=== PATIENT | female | born 1970 | race Caucasian/White ===

== ENCOUNTER 2023-08-08 15:17 | Emergency (ER) | payer OTHER ==
[2023-08-08] MEDS ORDERED: KETOROLAC 30 MG/ML INJ ONE (15:51)
--- NOTE | 2023-08-08 15:53 | RAD REPORT ---
EXAM DESCRIPTION: RAD - Chest Single View - 08/08/2023 3:46 pm CLINICAL HISTORY: CHEST PAIN Chest pain. COMPARISON: No comparisons FINDINGS: Portable technique limits examination quality. The lungs are grossly clear. The heart is normal in size. No displaced fractures. IMPRESSION: No acute intrathoracic process suspected.
[2023-08-08 16:41] LABS: Absolute Basophils 0.1 K/uL (0-0.5); Absolute Eosinophils 0.2 K/uL (0-0.5); Absolute Lymphocytes (CBC) 3.1 K/uL (0.7-4.9); Absolute Monocytes 0.6 K/uL (0.1-1.3); Basophils % 0.8 % (0-1.3); Eosinophils % 1.4 % (0-4.4); Hematocrit 40.2 % (36.0-45.0); Hemoglobin 13.7 g/dL (12.0-15.0); Lymphocytes % 28.5 % (15.3-44.8); MCH 31.8 pg (27.0-35.0); MCV 93.5 fL (80-100); MPV 9.8 fL (7.6-11.3); Monocytes % 5.7 % (3.3-12.3); Neutrophils % 63.6 % (41.7-73.7); Nucleated Red Blood Cells % 0.2 % (0-0); Platelets 302 thou/uL (152-406); Red Cell Distribution Width 12.9 % (12.1-15.2)
[2023-08-08 16:59] LABS: Anion Gap 4.7 mEq/L (5.0-15.0); BUN Blood Urea Nitrogen 20 mg/dL (7-18); Bicarbonate 29 mEq/L (21-32); Glomerular Filtration Rate 83 ml/min (=/>90); Glucose Level 104 mg/dL (74-106); Potassium 3.7 mEq/L (3.5-5.1); Sodium Level 135 mEq/L (136-145)
[2023-08-08 17:02] LABS: Troponin High Sensitivity < 3.0 pg/mL (<58.9)
--- NOTE | 2023-08-08 17:20 | ER ---
Nurse's Notes [facility] Name: Carolee Yoon Age: 53 yrs Sex: Female : 1970 Arrival Date: 08/08/2023 Time: 15:17 Bed 4 Private MD: Diagnosis: Chest pain, unspecified Presentation: 08/07 15:20 Chief complaint: Patient states: chest tightness that has been worsening over the last as6 few days, pt also reports dizziness. Coronavirus screen: At this time, the client does not indicate any symptoms associated with coronavirus-19. Ebola Screen: No symptoms or risks identified at this time. Initial Sepsis Screen: Does the patient meet any 2 criteria? No. Patient's initial sepsis screen is negative. Does the patient have a suspected source of infection? No. Patient's initial sepsis screen is negative. Risk Assessment: Do you want to hurt yourself or someone else? Patient reports no desire to harm self or others. Onset of symptoms was August 06, 2023. 15:20 Method Of Arrival: Ambulatory as6 15:20 Acuity: ROGELIO 2 as6 Triage Assessment: 15:22 General: Appears in no apparent distress. Behavior is calm, cooperative. Pain: as6 Complains of pain in chest. Historical: - Allergies: 15:21 No Known Allergies; as6 - PMHx: 15:21 None; as6 - PSHx: 15:21 Total abdominal hysterectomy; back; as6 - Immunization history:: Adult Immunizations up to date. - Infectious Disease History:: Denies. - Social history:: Smoking status: Patient reports the use of cigarette tobacco products, denies chronic smoking, but will smoke occasionally. Screenin:25 [facility] ED Fall Risk Assessment (Adult) History of falling in the last 3 months, rs5 including since admission No falls in past 3 months (0 pts) Confusion or Disorientation No (0 pts) Intoxicated or Sedated No (0 pts) Impaired Gait No (0 pts) Mobility Assist Device Used No (0 pt) Altered Elimination No (0 pt) Score/Fall Risk Level 0 - 2 = Low Risk Oriented to surroundings, Maintained a safe environment. Abuse screen: Denies threats or abuse. Nutritional screening: No deficits noted. Tuberculosis screening: No symptoms or risk factors identified. Assessment: 15:25 General: Appears in no apparent distress. uncomfortable, Behavior is calm, cooperative. rs5 Pain: Complains of pain in chest Pain does not radiate. Pain currently is 5 out of 10 on a pain scale. Quality of pain is described as aching, Pain began 2-3 days ago. Neuro: Level of Consciousness is awake, alert, obeys commands, Oriented to person, place, time, situation. Cardiovascular: Patient's skin is warm and dry. Rhythm is regular. Respiratory: Airway is patent Respiratory effort is even, unlabored, Respiratory pattern is regular, symmetrical. GI: Abdomen is round non-distended, Abd is soft and non tender X 4 quads. : No signs and/or symptoms were reported regarding the genitourinary system. EENT: No signs and/or symptoms were reported regarding the EENT system. Derm: Skin is intact, Skin is pink, warm \\T\\ dry. Musculoskeletal: Range of motion: intact in all extremities. 15:40 Reassessment: To bedside for med adm, Ketorolac drawn from vial using 1 ml syringe. pt rs5 states "I don't want to take any medication, I don't like taking medication", opened Toradol vial and syringe disposed in sharps container. provider notified. 16:33 Reassessment: No changes from previously documented assessment. rs5 17:41 Reassessment: Patient and/or family updated on plan of care and expected duration. Pain rs5 level reassessed. Patient is alert, oriented x 3, equal unlabored respirations, skin warm/dry/pink. Vital Signs: 15:20 BP 176 / 100; Pulse 77; Resp 18 S; Temp 97.8; Pulse Ox 100% on R/A; Weight 79.38 kg as6 (R); Height 5 ft. 5 in. (R); Pain 5/10; 16:00 BP 133 / 79; Pulse 80; Resp 17; Pulse Ox 99% ; rs5 17:12 BP 140 / 83; Pulse 67; ec2 17:25 BP 135 / 77; Pulse 72; Resp 18; Pulse Ox 99% on R/A; rs5 15:20 Body Mass Index 29.12 (79.38 kg, 165.1 cm) as6 15:20 Pain Scale: Adult as6 ED Course: 15:18 Patient arrived in ED. mr 15:18 Joel Fuentes MD is Attending Physician. ec2 15:20 Arm band placed on left wrist. as6 15:21 Triage completed. as6 15:25 Patient has correct armband on for positive identification. Bed in low position. Call rs5 light in reach. Side rails up X2. Client placed on continuous cardiac and pulse oximetry monitoring. NIBP monitoring applied. property assessment monitor on. Pulse ox on. 15:47 Vanessa Fuentes, RN is Primary Nurse. db 15:48 XRAY Chest (1 view) In Process Unspecified. EDMS 16:30 Inserted saline lock: 20 gauge in right antecubital area, using aseptic technique. nj1 Blood collected. Ultrasound guided. Catheter tip well visualized within vasculature during placement. 17:42 No provider procedures requiring assistance completed. rs5 17:43 IV discontinued, intact, bleeding controlled, No redness/swelling at site. Pressure rs5 dressing applied. Administered Medications: 16:37 Not Given (Patient Refused): [id number] mg IVP once rs5 Medication: 17:42 VIS not applicable for this client. rs5 Outcome: 17:20 Discharge ordered by . ec2 17:43 Discharged to home ambulatory, rs5 17:43 Condition: stable 17:43 Discharge instructions given to patient, family, Instructed on discharge instructions, follow up and referral plans. Demonstrated understanding of instructions, follow-up care, 17:43 Patient left the ED. rs5 Signatures: Dispatcher [employer] EDMN MerazCarina, Reg Reg mr SchmidAleksey, RN RN as6 Vanessa Fuentes, RN CAILIN db Avi Herbert RN RN rs5 Cami Mendez RN RN nj1 Joel Fuentes MD MD ec2 Corrections: (The following items were deleted from the chart) 08/08 07:53 08/07 15:25 Pain: Complains of pain in chest Pain does not radiate. Pain currently is 2 rs5 out of 10 on a pain scale. Quality of pain is described as aching, Pain began 2-3 days ago. rs5 08/08 07:53 08/07 15:25 Reassessment: Pt states "I'm not really having pain, it's more of a rs5 tightness that I am feeling". rs5 08/08 07:54 08/07 15:40 Reassessment: To bedside for med adm, Ketorolac drawn from vial using 1 ml rs5 syringe. pt states "I don't want to take any medication, I don't like taking medication", Toradol vial and syringe disposed in sharps container. provider notified. rs5
--- NOTE | 2023-08-08 17:20 | EDPHYS ---
Physician Documentation [facility] Name: Carolee Yoon Age: 53 yrs Sex: Female : 1970 Arrival Date: 08/08/2023 Time: 15:17 Bed 4 Private MD: ED Physician Joel Fuentes HPI: 08/07 15:46 This 53 yrs old Female presents to ER via Ambulatory with complaints of Chest ec2 Pain, Chest Tightness. 15:46 Patient arrives today for evaluation of chest pain. Patient been having chest pain ec2 ongoing for several days. Patient reports no specific alleviating chest pain factors. Patient reports no difficulty breathing, no leg swelling. Patient denies any cardiac disease. Patient reports no nausea or vomiting, no shortness of breath, no abdominal pain, no urinary complaints.. Historical: - Allergies: 15:21 No Known Allergies; as6 - PMHx: 15:21 None; as6 - PSHx: 15:21 Total abdominal hysterectomy; back; as6 - Immunization history:: Adult Immunizations up to date. - Infectious Disease History:: Denies. - Social history:: Smoking status: Patient reports the use of cigarette tobacco products, denies chronic smoking, but will smoke occasionally. ROS: 15:46 Constitutional: as per hpi ec2 Exam: 15:46 Constitutional: GEN: NAD Head: atraumatic Eyes: EOMI Ears: External ears are ec2 normal. CV: regular rate LUNGS: no respiratory distress ABD: non-distended SKIN: no evidence of rashes MSK: no evidence of trauma NEURO: moves all extremities equally Vital Signs: 15:20 BP 176 / 100; Pulse 77; Resp 18 S; Temp 97.8; Pulse Ox 100% on R/A; Weight 79.38 kg as6 (R); Height 5 ft. 5 in. (R); Pain 5/10; 16:00 BP 133 / 79; Pulse 80; Resp 17; Pulse Ox 99% ; rs5 17:12 BP 140 / 83; Pulse 67; ec2 17:25 BP 135 / 77; Pulse 72; Resp 18; Pulse Ox 99% on R/A; rs5 15:20 Body Mass Index 29.12 (79.38 kg, 165.1 cm) as6 15:20 Pain Scale: Adult as6 MDM: 15:23 Patient medically screened. ec2 15:46 Data reviewed: vital signs. ED course: Patient arrives today for evaluation of chest ec2 tightness. Examination remarkable for well-appearing nontoxic dividual is otherwise in no acute distress with a reassuring examination. Will obtain a cardiac evaluation. Evaluating for ACS, electrolyte disturbances, arrhythmia, pneumonia.. 15:47 ED course: EKG independently reviewed and interpreted by me, shows normal sinus rhythm, ec2 rate of 60, no acute ST segment elevations, intervals non-concerning. . 15:54 ED course: Chest x-ray independently reviewed and interpreted by me, shows no acute ec2 thoracic process.. 17:10 ED course: Metabolic profile reassuring, troponin undetectable. . ec2 17:19 ED course: On reassessment patient is well-appearing in no acute distress. Will ec2 discharge home. Instructed follow-up primary care doctor, possible cardiology evaluation as well. Laceration for ACS, low suspicion for PE or dissection.. 05 15:23 Order name: Basic Metabolic Panel; Complete Time: 17:09 ec2 08/07 15:23 Order name: CBC with Diff; Complete Time: 16:49 ec2 08/07 15:23 Order name: Troponin HS; Complete Time: 17:09 ec2 08/07 15:23 Order name: XRAY Chest (1 view); Complete Time: 15:54 ec2 08/07 15:23 Order name: Cardiac monitoring; Complete Time: 16:12 ec2 08/07 15:23 Order name: EKG - Nurse/Tech; Complete Time: 16:12 ec2 08/07 15:23 Order name: IV Saline Lock; Complete Time: 16:37 ec2 08/07 15:23 Order name: Labs collected and sent; Complete Time: 16:37 ec2 08/07 15:23 Order name: O2 Per Protocol; Complete Time: 16:12 ec2 08/07 15:23 Order name: O2 Sat Monitoring; Complete Time: 16:12 ec2 Administered Medications: 16:37 Not Given (Patient Refused): [id number] mg IVP once rs5 Disposition Summary: 08/08/23 17:20 Discharge Ordered Notes: Location: Home ec2 Condition: Stable ec2 Diagnosis - Chest pain, unspecified ec2 Followup: ec2 - With: Private Physician - When: - Reason: Re-evaluation by your physician Discharge Instructions: - Discharge Summary Sheet ec2 - Nonspecific Chest Pain, Adult ec2 Forms: - Medication Reconciliation Form ec2 - Antibiotic Education ec2 - Prescription Opioid Use ec2 - Patient Portal Instructions ec2 - Leadership Thank You Letter ec2 Signatures: Dispatcher [employer] Aleksey Valle RN RN as6 Joel Fuentes MD MD ec2 Avi Herbert RN rs5 Corrections: (The following items were deleted from the chart) 15:23 15:23 Chest Single View+RAD.[email or web address].[email or web address] ordered. HEMA GARRIDO
[2023-08-08 18:05] VITALS: BP 135/77; TEMP 97.8; O2SAT 99
--- NOTE | 2023-08-09 14:01 | EKG ---
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
== END 2023-08-08 17:43 | disposition home or self-care (01) ==
LOC: ER 15:17
DX: R07.89 Other chest pain (principal); F17.210 Nicotine dependence, cigarettes, uncomplicated
CPT/HCPCS: 36415; 71045; 80048; 84484; 85025; 93005; 99284

== ENCOUNTER 2024-05-12 15:36 | Emergency (ER) | payer OTHER ==
[2024-05-12] MEDS ORDERED: TDAP (DIPHTH,PERTUSS(ACELL),TET VAC) 0.5 ML VIAL IMVAC ONE (15:48)
[2024-05-12] MEDS ORDERED: LIDOCAINE 1% MPF 30 ML VIAL ONE (15:48)
--- NOTE | 2024-05-12 16:35 | RAD REPORT ---
EXAM: Hand Left 3 View HISTORY: L thumb inj COMPARISON: None FINDINGS: Bones: Comminuted fracture of the thumb. No intra-articular extension. Fracture involves the mid and distal portions. . Overall, the displacement is mild. Alignment: There is up to 2 mm of distraction of the tuft. Degenerative changes:None significant. Other: n/a IMPRESSION: Comminuted fracture of the thumb.
--- NOTE | 2024-05-12 16:50 | EDPHYS ---
Physician Documentation [facility] Name: Carolee Yoon Age: 54 yrs Sex: Female : 1970 Arrival Date: 05/12/2024 Time: 15:36 Bed 17 Private MD: ED Physician Joel Fuentes HPI: 05/12 15:44 This 54 yrs old Female presents to ER via Unassigned with complaints of Crush ec2 Injury - left thumb. 15:44 Patient arrives today for evaluation of a left thumb injury. Reports that she had ec2 injured crushed her left thumb. Denies any other concerns. Pain and injury isolated to the distal portion of the thumb.. 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 - Infectious Disease History:: Denies. - Social history:: Smoking status: Patient reports the use of cigarette tobacco products, smokes .25 packs per day. ROS: 15:44 Constitutional: as per hpi ec2 Exam: 15:44 Constitutional: GEN: NAD Head: atraumatic Eyes: EOMI Ears: External ears are ec2 normal. CV: regular rate LUNGS: no respiratory distress ABD: non-distended SKIN: Distal left thumb with subungual hematoma, bleeding present, nail intact Vital Signs: 15:45 BP 192 / 96; Pulse 89; Resp 17; Temp 97.6; Pulse Ox 98% ; Weight 79.38 kg; Height 5 ft. ll1 5 in. ; Pain 4/10; 17:00 BP 154 / 84; Pulse 80; Resp 20; Temp 98; Pulse Ox 100% on R/A; kj2 15:45 Body Mass Index 29.12 (79.38 kg, 165.1 cm) ll1 15:45 Pain Scale: Adult ll1 Procedures: 16:53 Nerve block: (digital) of palmar aspect of proximal phalanx of left thumb Medication: ec2 Lidocaine 1% without epinephrine Amount: 10 mls were injected, Effect: the patient's symptoms are improved, moderately, Set up for procedure. Patient tolerated well. MDM: 15:39 Medical Screening Exam initiated ec2 15:46 Data reviewed: vital signs, nurses notes. ED course: Patient arrives today for ec2 evaluation of a left distal thumb injury. Examination yields findings as above. Will obtain radiograph, updated tetanus status. Differential considered includes bony fracture, subungual hematoma, nailbed avulsion. 16:46 ED course: Hand x-ray independently reviewed and interpreted by me, shows comminuted ec2 distal thumb fracture. I performed digital block with improvement in symptoms. Will place the patient in a finger splint, nonadherent dressing and discharge home. Patient does have a small tissue defect above, no bone exposure however given the subungual hematoma and the small tissue defect, will empirically give antibiotics and have the patient follow-up with hand surgery. Return precautions given.. 05/12 15:40 Order name: Hand Left 3 View XRAY; Complete Time: 16:46 ec2 05/12 16:22 Order name: Wound dressing; Complete Time: 17:19 ec2 05/12 16:22 Order name: Splint - Finger; Complete Time: 17:19 ec2 Administered Medications: 15:53 Drug: Boostrix Tdap IM 0.5 ml IM once; as a single dose Route: IM; Site: left deltoid; [facility] 17:26 Follow up: Response: No adverse reaction kj2 15:53 Drug: Lidocaine Infiltration (1 %) 10 ml 20 ml Infiltration once; to bedside {Note: by [address] Dr. Fuentes.} Volume: 20 ml; Route: Infiltration; 17:19 Follow up: Response: No adverse reaction kj2 17:26 Follow up: Response: No adverse reaction kj2 17:07 Drug: Amoxicillin-Clavulanate PO 875 mg PO once Route: PO; kj2 17:19 Follow up: Response: No adverse reaction kj2 17:27 Follow up: Response: No adverse reaction kj2 Disposition Summary: 05/12/24 16:49 Discharge Ordered Condition: Stable ec2 Diagnosis - Nondisplaced fracture of distal phalanx of left thumb, initial encounter for open ec2 fracture Followup: ec2 - With: Private Physician - When: - Reason: Re-evaluation by your physician Discharge Instructions: - Discharge Summary Sheet ec2 - Thumb Fracture ec2 Forms: - Medication Reconciliation Form ec2 - Antibiotic Education ec2 - Prescription Opioid Use ec2 - Patient Portal Instructions ec2 - Leadership Thank You Letter ec2 Prescriptions: - Augmentin 875-125 mg Oral Tablet - take 1 tablet ORAL route every 12 hours for 10 days; 20 tablet; Refills: 0, ec2 Product Selection Permitted Signatures: Dispatcher [employer] Isabelle Fagan, RN RN ll1 Joel Fuentes MD MD ec2 Liliam Joseph RN RN kj2
--- NOTE | 2024-05-12 16:50 | ER ---
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 Bleeding ll1 controlled with wrap. Coronavirus screen: Client denies travel out of the [place] in the last 14 days. At this time, the client does not indicate any symptoms associated with coronavirus-19. Ebola Screen: Patient denies travel to an Ebola-affected area in the 21 days before illness onset. Initial Sepsis Screen: Does the patient meet any 2 criteria? No. Patient's initial sepsis screen is negative. Does the patient have a suspected source of infection? No. Patient's initial sepsis screen is negative. Risk Assessment: Do you want to hurt yourself or someone else? Patient reports no desire to harm self or others. Onset of symptoms was May 12, 2024. 15:45 Method Of Arrival: Ambulatory ll1 15:45 Acuity: ROGELIO 3 ll1 Triage Assessment: 15:45 General: Appears uncomfortable, Behavior is calm, cooperative, appropriate for age. ll1 Pain: Complains of pain in L thumb Pain currently is 4 out of 10 on a pain scale. Quality of pain is described as aching, throbbing. Musculoskeletal: Circulation, motion, and sensation intact. Capillary refill < 3 seconds, in left fingers. Reports pain in L thumb. 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 - Infectious Disease History:: Denies. - Social history:: Smoking status: Patient reports the use of cigarette tobacco products, smokes .25 packs per day. Screenin:00 [facility] ED Fall Risk Assessment (Adult) History of falling in the last 3 months, kj2 including since admission No falls in past 3 months (0 pts) Confusion or Disorientation No (0 pts) Intoxicated or Sedated No (0 pts) Impaired Gait No (0 pts) Mobility Assist Device Used No (0 pt) Altered Elimination No (0 pt) Score/Fall Risk Level 0 - 2 = Low Risk Maintained a safe environment, Hourly rounding (assess needs \T\ fall precautionary measures) done. Abuse screen: Denies threats or abuse. Denies injuries from another. Nutritional screening: No deficits noted. Tuberculosis screening: No symptoms or risk factors identified. Assessment: 16:00 General: Appears in no apparent distress. uncomfortable. Pain: Complains of pain in kj2 palmar aspect of proximal phalanx of left thumb Pain currently is 4 out of 10 on a pain scale. Neuro: Level of Consciousness is awake, alert, obeys commands, Oriented to person, place, time, situation. Cardiovascular: Patient's skin is warm and dry. Respiratory: Airway is patent Respiratory effort is even, unlabored. GI: No signs and/or symptoms were reported involving the gastrointestinal system. : No signs and/or symptoms were reported regarding the genitourinary system. 17:00 Reassessment: Patient appears in no apparent distress at this time. Patient and/or kj2 family updated on plan of care and expected duration. Pain level reassessed. Patient is alert, oriented x 3, equal unlabored respirations, skin warm/dry/pink. 17:23 Reassessment: Patient appears in no apparent distress at this time. kj2 Vital Signs: 15:45 BP 192 / 96; Pulse 89; Resp 17; Temp 97.6; Pulse Ox 98% ; Weight 79.38 kg; Height 5 ft. ll1 5 in. ; Pain 4/10; 17:00 BP 154 / 84; Pulse 80; Resp 20; Temp 98; Pulse Ox 100% on R/A; kj2 15:45 Body Mass Index 29.12 (79.38 kg, 165.1 cm) ll1 15:45 Pain Scale: Adult ll1 ED Course: 15:38 Patient arrived in ED. ra3 15:39 Joel Fuentes MD is Attending Physician. ec2 15:47 Triage completed. ll1 16:00 Patient has correct armband on for positive identification. Provided Education on: CALL kj2 LIGHT. 16:22 Hand Left 3 View XRAY In Process Unspecified. EDMS 17:00 Liliam Joseph, RN is Primary Nurse. kj2 17:24 Patient maintains SpO2 saturation greater than 95% on room air. kj2 17:25 No provider procedures requiring assistance completed. Patient did not have IV access kj2 during this emergency room visit. 17:26 Splint/sling/ice applied as appropriate. Patient placed in an exam room. kj2 Administered Medications: 15:53 Drug: Boostrix Tdap IM 0.5 ml IM once; as a single dose Route: IM; Site: left deltoid; ll1 17:26 Follow up: Response: No adverse reaction kj2 15:53 Drug: Lidocaine Infiltration (1 %) 10 ml 20 ml Infiltration once; to bedside {Note: by ll1 Dr. Fuentes.} Volume: 20 ml; Route: Infiltration; 17:19 Follow up: Response: No adverse reaction kj2 17:26 Follow up: Response: No adverse reaction kj2 17:07 Drug: Amoxicillin-Clavulanate PO 875 mg PO once Route: PO; kj2 17:19 Follow up: Response: No adverse reaction kj2 17:27 Follow up: Response: No adverse reaction kj2 Medication: 17:25 VIS not applicable for this client. kj2 Outcome: 16:49 Discharge ordered by . ec2 17:25 Discharged to home ambulatory, with family, kj2 17:25 Condition: stable 17:25 Discharge instructions given to patient, Instructed on discharge instructions, follow up and referral plans. Demonstrated understanding of instructions, follow-up care, medications, Prescriptions given X 1, 17:27 Patient left the ED. kj2 Signatures: Dispatcher [employer] Isabelle Fagan, RN RN ll1 Joel Fuentes MD MD ec2 Cande Metz 3 Liliam Joseph, RN RN kj2
[2024-05-12] MEDS ORDERED: AMOX/K CLAV 875 MG TAB ONE (17:02)
[2024-05-12 17:39] VITALS: BP 154/84; TEMP 98; O2SAT 100
== END 2024-05-12 17:27 | disposition home or self-care (01) ==
LOC: ER 15:36
PROC: 2W3HX1Z Immobilization of Left Thumb using Splint (ICD-10-PCS; principal; 2024-05-12)
DX: S62.525B Nondisplaced fracture of distal phalanx of left thumb, initial encounter for open fracture (principal)
CPT/HCPCS: 73130; 64450; 96372; 99284; 29130; J2003